=== PATIENT | male | born 1995 | race African-American/Black ===

== ENCOUNTER 2020-09-11 12:10 | Emergency (ER) | payer OTHER ==
[2020-09-11] MEDS ORDERED: KETOROLAC TROMETHAMINE 60 MG/2 ML VIAL ONE (12:21)
== END 2020-09-11 13:12 | disposition home or self-care (01) ==
LOC: EEVIPCON 12:10 → EDH 12:10
DX: S93.402A Sprain of unspecified ligament of left ankle, initial encounter (principal); Y93.67 Activity, basketball; Y93.89 Activity, other specified; Y92.89 Other specified places as the place of occurrence of the external cause; Y99.8 Other external cause status
CPT/HCPCS: 73610; 96372; 99283; J1885